=== PATIENT | male | born 1965 | race Caucasian/White ===

== ENCOUNTER → 2019-06-16 | Outpatient (CLI) | payer OTHER ==
[~2019-06-16] MED LIST: METO50TA7
[2019-06-16 08:45] LABS: CREATININE SERUM 1.54 MG/DL (0.60-1.30)
--- NOTE | 2019-06-16 09:23 | Diagnostic Imaging Report ---
Indication: Bilateral kidney stones. Time of exam: 9:13 AM Bilateral renal calcifications are noted consistent with calculi. Multiple small calculi proximal left ureter again noted corresponding with CT and Steinstrasse. Bowel gas pattern is unremarkable. Impression: Bilateral nephrolithiasis and a left ureteral calculi. Dictated by: Dictated on workstation # [id number]
--- NOTE | 2019-06-16 09:24 | Diagnostic Imaging Report ---
PROCEDURE: CT urinary tract, rule out kidney stone. TECHNIQUE: Multiple contiguous axial images were obtained through the abdomen and pelvis without the use of intravenous contrast. Auto Exposure Controls were utilized during the CT exam to meet ALARA standards for radiation dose reduction. INDICATION: Bilateral kidney stones. COMPARISON: No prior studies are available for comparison. FINDINGS: There appears to be some interstitial scarring in the right middle lobe and right lower lobe as well as the left lower lobe. No discrete liver mass is identified. The gallbladder is unremarkable. There is no biliary duct dilatation. The pancreas and spleen are unremarkable. No adrenal mass is detected. There is bilateral nonobstructing renal calculi. Largest renal calculus is located in the lower pole on the right measuring approximately 4 mm. In addition, there are several calculi in the proximal left ureter just beyond the UPJ, largest approximately 5 mm in size. No significant hydronephrosis is seen. The remainder of the left ureter is normal in caliber and unremarkable. No right-sided ureteral calculi are seen. No bladder calculi are detected. Aorta is calcified but nonaneurysmal. Bowel loops are normal in caliber. Appendix is unremarkable. There is no ascites. There is diverticulosis of the descending and sigmoid colon but no evidence of acute diverticulitis. The prostate is unremarkable. IMPRESSION: 1. Bilateral nonobstructing nephrolithiasis. In addition, there are multiple small calculi in the proximal left ureter consistent with steinstrasse, largest 5 mm in size. No significant hydronephrosis is seen. 2. Uncomplicated diverticulosis. Dictated by: Dictated on workstation # [id number]
== END ==
LOC: RAD 08:17
PROVIDERS: ATTEND Urology
DX: N20.2 Calculus of kidney with calculus of ureter (principal); K57.30 Diverticulosis of large intestine without perforation or abscess without bleeding
CPT/HCPCS: 36415; 74018; 74176; 82565; 84520

== ENCOUNTER 2019-07-04 15:35 | Outpatient (CLI) | payer OTHER ==
[~2019-07-04] VITALS: Ht 167.6 cm; Wt 82.9 kg
[~2019-07-04 15:35] MED LIST changes: -ETAN50CA SQ; -ETD300C PO; -GABA-488 PO; -LISI10TA2 PO; -METF-397 PO; -NITR-65 PO; -PRED5TAB PO; -TAMS0.4C98 PO
[2019-07-04] MEDS ORDERED: ETAN50CA SQ (15:47)
[2019-07-04] MEDS ORDERED: GABA-488 PO (15:47)
[2019-07-04] MEDS ORDERED: PRED5TAB PO (15:47)
[2019-07-04] MEDS ORDERED: LISI10TA2 PO (15:47)
[2019-07-04] MEDS ORDERED: ETD300C PO (15:47)
[2019-07-04] MEDS ORDERED: METF-397 PO (15:47)
[2019-07-05] MEDS ORDERED: NITR-65 PO (09:12)
[2019-07-05] MEDS ORDERED: TAMS0.4C98 PO (09:12)
== END 2019-07-04 16:06 | disposition home or self-care (01) ==
LOC: PREOP 15:35
PROVIDERS: ATTEND Urology
DX: Z01.818 Encounter for other preprocedural examination (principal)

== ENCOUNTER → 2019-07-04 | Outpatient (CLI) | payer OTHER ==
[~2019-07-04] MED LIST changes: +ETAN50CA SQ; +ETD300C PO; +GABA-488 PO; +LISI10TA2 PO; +METF-397 PO; +NITR-65 PO; +PRED5TAB PO; +TAMS0.4C98 PO
--- NOTE | 2019-07-04 13:08 | Diagnostic Imaging Report ---
INDICATION: Left ureteral and bilateral renal stones. TIME OF EXAM: 11:28 a.m. Correlation is made with prior study of 06/16/2019. FINDINGS: Calcific densities overlying both renal shadows appear to be stable. There is a calcific density overlying the left L3 transverse process consistent with ureteral calculus. This is similar in position to prior exam. Bowel gas pattern is unremarkable. IMPRESSION: Stable bilateral renal calculi and left ureteral calculus when compared with exam 06/16/2019. Dictated by: Dictated on workstation # [id number]
== END ==
LOC: RAD 11:19
PROVIDERS: ATTEND Urology
DX: N20.2 Calculus of kidney with calculus of ureter (principal)
CPT/HCPCS: 74018

== ENCOUNTER 2019-07-05 05:46 | Day surgery (SDC) | payer OTHER ==
[~2019-07-05] VITALS: Ht 167.6 cm; Wt 82.9 kg
[2019-07-05] VITALS (8 sets, daily range): BP systolic 109–135; BP diastolic 83–98
[~2019-07-05 05:46] MED LIST changes: +ETAN50CA SQ; +ETD300C PO; +GABA-488 PO; +LISI10TA2 PO; +METF-397 PO; +PRED5TAB PO
[2019-07-05] MEDS ORDERED: cefTRIAXone FOR IV USE 1,000 MG in WATER (STERILE) FOR INJECTION 10 ML IV ONE (06:30)
--- NOTE | 2019-07-05 07:17 | Progress Note-Pre Operative ---
Pre-Operative Progress Note H&P Reviewed The H&P was reviewed, patient examined and no changes noted. Date Seen by Provider: Jul 05, 2019 Time Seen by Provider: 07:16 Date H&P Reviewed: Jul 05, 2019 Time H&P Reviewed: 07:16 Pre-Operative Diagnosis: LT PROXIMAL URETERAL AND RT RENAL STONES MAURICE STAPLES MD Jul 05, 2019 07:17
--- NOTE | 2019-07-05 07:21 | Progress Note-Post Operative ---
Post-Operative Progess Note Surgeon (s)/Machine Room Engineer (s) Surgeon MAURICE STAPLES MD Machine Room Engineer: NONE Pre-Operative Diagnosis LT PROXIMAL URETERAL AND RT RENAL STONES Post-Operative Diagnosis SAME Procedure & Operative Findings Date of Procedure 07/05/19 Procedure Performed/Findings LT ESWL Anesthesia Type GENERAL Estimated Blood Loss Estimated blood loss (mL): NONE Specimens/Packing Specimens Removed NONE Packing: NONE MAURICE STAPLES MD Jul 05, 2019 07:21
--- NOTE | 2019-07-05 07:23 | Diagnostic Imaging Report ---
INDICATION: Preop for left ureteral stone removal A supine view of the abdomen shows the bowel gas pattern to be within normal limits. There are bilateral renal calcifications present. There is calcification projected over the left transverse process of L3 consistent with a calculus in the proximal left ureter as was seen on the CT from 06/16/19. There is no bony abnormality. IMPRESSION: There are multiple urinary tract calcifications present. Dictated by: Dictated on workstation # [id number]
--- NOTE | 2019-07-05 07:23 | Discharge Inst-Urology ---
Discharge Inst-Urology Reconcile Patient Problems Problems Reviewed?: Yes Discharge Medications New, Converted, or Re-newed RX: RX on Chart Patient Instructions/Follow Up Plan Please make appointment to been seen in office in on Wednesday 07/11, UZMA prior to it. KUB on way home Post ESWL instructions Increase oral fluids for 48 hours and then as needed. Diet and Activity as tolerated. If questions or concerns contact your physician Or seek help at emergency department. MAURICE STAPLES MD Jul 05, 2019 07:23
[2019-07-05] MEDS ORDERED: MIDAZOLAM 2 MG/2 ML (VERSED) VIAL ONE (07:28)
[2019-07-05] MEDS ORDERED: fentaNYL INJECTION 100 MCG/2 ML AMP ONE (07:28)
[2019-07-05] MEDS ORDERED: LACTATED RINGERS 1,000 ML IV PRN (07:34)
[2019-07-05] MEDS ORDERED: SEVOFLURANE (ULTANE) 15 ML INHAL SOLN ONE (07:55)
[2019-07-05] MEDS ORDERED: proPOfol 200 MG/20 ML (DIPRIVAN) VIAL IV ONE (07:55)
[2019-07-05] MEDS ORDERED: LIDOCAINE PF 2% 5 ML (XYLOCAINE) VIAL ONE (07:55)
[2019-07-05] MEDS ORDERED: FUROSEMIDE 40 MG/4 ML INJ (LASIX) ONE (07:55)
[2019-07-05] MEDS ORDERED: ONDANSETRON 4 MG/2 ML (SDV) Z0FRAN ONE (07:55)
[2019-07-05] MEDS ORDERED: KETOROLAC 30 MG/ML VIAL ONE (07:55)
[2019-07-05] MEDS ORDERED: TAMS0.4C98 PO (09:12)
[2019-07-05] MEDS ORDERED: NITR-65 PO (09:12)
--- NOTE | 2019-07-05 10:50 | OPERATIVE REPORT ---
DATE OF SERVICE: 07/05/2019 PREOPERATIVE DIAGNOSIS: Left proximal ureteral and renal stones. POSTOPERATIVE DIAGNOSIS: Left proximal ureteral and renal stones. OPERATION PERFORMED: Left ESWL. SURGEON: Carlos Staples MD ANESTHESIA: General. COMPLICATIONS: None. DESCRIPTION OF PROCEDURE: Under satisfactory general anesthesia, the patient in supine position on the ESWL table, the left proximal ureteral stone was localized. Shocks were delivered at a kV of 6. A total of 2500 shocks completely fragmented the stone that was hardly visualized. The patient received 40 mg of Lasix and 30 mg of Toradol IV at the end of the procedure. He tolerated the procedure and anesthesia well and was sent to recovery room in stable condition. Job ID: [id number] DocumentID: [id number] Dictated Date: 07/05/2019 08:11:37 Telephone Services Sales Representative Date: 07/05/2019 10:50:18 Dictated By: CARLOS STAPLES MD
--- NOTE | 2019-07-05 12:46 | Diagnostic Imaging Report ---
Examination: Abdomen one view. History: Extracorporeal shockwave lithotripsy. Findings: Comparison: 07/05/2019. The left ureteral stone appears somewhat fragmented compared to prior study. Calcifications projecting over the right kidney appear unchanged. Bowel gas pattern is normal. Impression: 1. Left ureteral stone appears more fragmented than on the prior study, other renal stones are unchanged. Dictated by: Dictated on workstation # [id number]
--- NOTE | 2019-07-05 13:34 | Anesthesia-General Post-Op ---
General Patient Condition Mental Status/LOC: Same as Preop Cardiovascular: Satisfactory Nausea/Vomiting: Absent Respiratory: Satisfactory Pain: Controlled Complications: Absent Post Op Complications Complications None Follow Up Care/Instructions Patient Instructions None needed. Anesthesia/Patient Condition Patient Condition Patient is doing well, no complaints, stable vital signs, no apparent adverse anesthesia problems. No complications reported per nursing. D/C home per [facility] [place] Criteria: Yes SAUL WALLACE CRNA Jul 05, 2019 13:34
== END 2019-07-05 10:00 | disposition home or self-care (01) ==
LOC: SDC 05:46
PROVIDERS: ATTEND Urology
DX: N20.2 Calculus of kidney with calculus of ureter (principal); I10 Essential (primary) hypertension; I25.10 Atherosclerotic heart disease of native coronary artery without angina pectoris; F17.210 Nicotine dependence, cigarettes, uncomplicated; G47.33 Obstructive sleep apnea (adult) (pediatric); M06.9 Rheumatoid arthritis, unspecified; E11.9 Type 2 diabetes mellitus without complications; Z79.84 Long term (current) use of oral hypoglycemic drugs; Z79.51 Long term (current) use of inhaled steroids
CPT/HCPCS: 74018; 82962; 87081

== ENCOUNTER 2019-07-25 09:00 | Outpatient (RCR) | payer OTHER ==
[~2019-07-25 09:00] MED LIST changes: +NITR-65 PO; +TAMS0.4C98 PO
== END 2019-10-06 | disposition home or self-care (01) ==
LOC: LAB 09:00
PROVIDERS: ATTEND Urology
DX: N20.9 Urinary calculus, unspecified (principal)
CPT/HCPCS: 36415; 82140; 82340; 82507; 82570; 83735; 83945; 83986; 84105; 84133; 84300; 84392; 84560; 88300

== ENCOUNTER → 2020-03-23 | Outpatient (CLI) | payer OTHER ==
[~2020-03-23] MED LIST changes: +CATHETER FLUSH 10 ML SYR IV PRN; +HOLD METFORMIN - RECEIVED CONTRAST 20 ML VIAL IV SCH; +IOHEXOL 350 MG/ML 100 ML (OMNIPAQUE 350) VIAL IV ONE; +NS 100 ML (IVPB) BAG IV ONE; -TAMS0.4C98 PO; +TMSL.4C PO
[2020-03-23 08:39] LABS: CREATININE SERUM 1.35 MG/DL (0.60-1.30)
--- NOTE | 2020-03-23 09:45 | Diagnostic Imaging Report ---
PROCEDURE: CT abdomen and pelvis with contrast. TECHNIQUE: Multiple contiguous axial images were obtained through the abdomen and pelvis after administration of intravenous contrast. Auto Exposure Controls were utilized during the CT exam to meet ALARA standards for radiation dose reduction. INDICATION: Abdominal hernia and previous exploratory surgery. Intermittent pain in the area of the hernia. Comparison made with prior examination 06/16/2019. FINDINGS: Heart size is normal. The lung bases are clear. The liver is normal in size and without focal lesions. Gallbladder is unremarkable. There is no biliary ductal dilatation. Spleen is normal. The pancreas and adrenal glands are unremarkable. There are bilateral nonobstructing renal calculi. The aorta is nonaneurysmal. Bowel gas pattern is nonspecific. The appendix is normal. There is no free air. There is no ascites. There are no focal inflammatory changes. There is diverticular disease without evidence of diverticulitis. IMPRESSION: Bilateral nonobstructing renal calculi. Diverticular disease without evidence of diverticulitis. No other acute abnormality in the abdomen or pelvis. Dictated by: Dictated on workstation # [id number]
== END ==
LOC: RAD 07:55
DX: K43.9 Ventral hernia without obstruction or gangrene (principal); K46.9 Unspecified abdominal hernia without obstruction or gangrene; H81.10 Benign paroxysmal vertigo, unspecified ear; I13.0 Hypertensive heart and chronic kidney disease with heart failure and stage 1 through stage 4 chronic kidney disease, or unspecified chronic kidney disease; I25.10 Atherosclerotic heart disease of native coronary artery without angina pectoris; N18.3 Chronic kidney disease, stage 3 (moderate); E11.40 Type 2 diabetes mellitus with diabetic neuropathy, unspecified; K76.0 Fatty (change of) liver, not elsewhere classified; G47.33 Obstructive sleep apnea (adult) (pediatric); M06.9 Rheumatoid arthritis, unspecified; F17.210 Nicotine dependence, cigarettes, uncomplicated; E78.2 Mixed hyperlipidemia; R19.02 Left upper quadrant abdominal swelling, mass and lump; N20.0 Calculus of kidney; K57.90 Diverticulosis of intestine, part unspecified, without perforation or abscess without bleeding; Z98.890 Other specified postprocedural states
CPT/HCPCS: 36415; 74177; 82565; 84520

== ENCOUNTER → 2021-03-08 | Outpatient (CLI) | payer OTHER ==
[~2021-03-08] MED LIST changes: -CATHETER FLUSH 10 ML SYR IV PRN; -HOLD METFORMIN - RECEIVED CONTRAST 20 ML VIAL IV SCH; -IOHEXOL 350 MG/ML 100 ML (OMNIPAQUE 350) VIAL IV ONE; -LISI10TA2 PO; +LISI10TA25 PO; -NS 100 ML (IVPB) BAG IV ONE
--- NOTE | 2021-03-08 14:23 | Diagnostic Imaging Report ---
INDICATION: Dysphagia. Study was performed in conjunction with speech pathology. Video fluoroscopy was performed during swallowing of barium multiple consistencies. Total of 1 minute and 21 seconds of fluoroscopic time was utilized. Patient ingested thin liquid as well as applesauce, banana, ground meat as well as cracker consistency. Patient was also given a barium tablet. No laryngeal penetration or aspiration was observed. There is no epiglottic tilt and laryngeal elevation. There is some mild vallecular residue with the pureed consistency. Swallowing did improve during chin tuck maneuver. The barium tablet did pass without difficulty. IMPRESSION: Essentially unremarkable modified barium swallow without evidence of penetration or aspiration. There was mild vallecular residue noted which did not improve with chin tuck. Dictated by: Dictated on workstation # [id number]
== END ==
LOC: RAD 11:00
PROVIDERS: ATTEND Nurse Practitioner
DX: R13.10 Dysphagia, unspecified (principal); I25.10 Atherosclerotic heart disease of native coronary artery without angina pectoris; I10 Essential (primary) hypertension; E78.2 Mixed hyperlipidemia; E11.9 Type 2 diabetes mellitus without complications; M06.9 Rheumatoid arthritis, unspecified; F17.210 Nicotine dependence, cigarettes, uncomplicated; E11.42 Type 2 diabetes mellitus with diabetic polyneuropathy; N18.30 Chronic kidney disease, stage 3 unspecified; E11.22 Type 2 diabetes mellitus with diabetic chronic kidney disease; H81.10 Benign paroxysmal vertigo, unspecified ear
CPT/HCPCS: 74230

== ENCOUNTER → 2021-06-14 | Outpatient (CLI) | payer OTHER ==
--- NOTE | 2021-06-14 16:50 | Diagnostic Imaging Report ---
EXAMINATION: CT abd/pelvis wo(kidney stone). TECHNIQUE: Unenhanced CT imaging of the abdomen and pelvis was performed. 2-D reformats are created and submitted for interpretation. Automatic exposure controls were utilized to optimize patient dose. All CT scans use one or more of the following dose optimizing techniques: automated exposure control, MA and/or KvP adjustment based on patient size and exam type or iterative reconstruction. INDICATION: Right flank pain. COMPARISON: CT abdomen and pelvis of 03/23/2020. FINDINGS: Evaluation of the abdominal viscera is mildly limited without contrast. Lower chest: Partially imaged paraesophageal mass posterior to the left atrium. There are multiple mildly enlarged paraesophageal and juxtaphrenic lymph nodes. Largest is 1.3 x 1.4 cm. Peritoneum: No free intraperitoneal air or fluid. Liver and biliary system: Unenhanced liver is normal. Gallbladder is contracted without radiopaque gallstones. No biliary duct dilatation. Spleen and Pancreas: Spleen is normal. Unenhanced pancreas is grossly normal. Adrenals: Normal. tract: Numerous bilateral nonobstructing renal stones range in size from 2-4 mm. No hydronephrosis. No solid renal mass. GI tract: Stomach is partially filled with fluid but there is no wall thickening. No bowel obstruction. Normal appendix. No pericolonic inflammatory change. Vasculature and Lymph nodes: Normal caliber abdominal aorta. Enlarged upper abdominal lymph nodes are detailed above in the chest section. Musculoskeletal: No concerning osseous lesion. IMPRESSION: 1. Incompletely imaged paraesophageal soft tissue mass located posterior to the right atrium must be considered malignant until proven otherwise. CT chest abdomen and pelvis with IV contrast is recommended for further workup/staging. 2. Additionally, there are multiple enlarged paraesophageal and upper abdominal lymph nodes that are suspicious for regional metastases. 3. Bilateral nonobstructing renal stones. Dictated by: Dictated on workstation # [id number]
== END ==
LOC: RAD 16:15
PROVIDERS: ATTEND Urology
DX: N20.0 Calculus of kidney (principal); R59.0 Localized enlarged lymph nodes
CPT/HCPCS: 74176

== ENCOUNTER → 2021-06-26 | Outpatient (CLI) | payer OTHER ==
--- NOTE | 2021-06-26 17:07 | Diagnostic Imaging Report ---
EXAMINATION: CT chest without contrast. TECHNIQUE: Multiple contiguous axial images were obtained through the chest without the use of intravenous contrast. All CT scans use one or more of the following dose optimizing techniques: automated exposure control, MA and/or KvP adjustment based on patient size and exam type or iterative reconstruction. HISTORY: Lymphadenopathy. COMPARISON: None available. FINDINGS: Thyroid: The thyroid is normal. Mediastinum: Heart size is normal without significant pericardial effusion. Calcifications of the aorta and coronary vessels. Thoracic aorta is normal in caliber. There are numerous enlarged mediastinal and perihilar lymph nodes. A agricultural sales representative node measures 3.0 x 3.7 cm in the right pretracheal space. An additional subcarinal node measures 3.6 x 5.4 cm. Lungs and airways: Scattered emphysematous and fibrotic changes of the lungs without focal consolidation, pleural effusion, or pneumothorax. There are a few scattered groundglass opacities. There are a few more focal nodules measuring up to 0.4 cm in the right lung apex (series 3 image 20). The airways are normal. Upper abdomen: There are a few enlarged grover hepatis and retroperitoneal lymph nodes present. There are multiple bilateral renal calculi. Hydronephrosis. Musculoskeletal: Degenerative changes of the spine without suspicious osseous lesion or compression fracture. IMPRESSION: 1. Suspicious enlarged mediastinal, perihilar, and upper abdominal lymphadenopathy. Findings are concerning for josee metastasis or lymphoma. Recommend correlation with any prior history of cancer or lymphoma. 2. Scattered emphysematous or fibrotic changes of the lungs. 3. Mild groundglass attenuation seen throughout the lungs which could be secondary to background lung disease or superimposed atypical infection. 4. Pulmonary nodules measuring up to 0.4 cm. Consider follow-up CT of the chest in 6-12 months. Dictated by: Dictated on workstation # [id number]
== END ==
LOC: RAD 16:45
PROVIDERS: ATTEND Urology
DX: R91.8 Other nonspecific abnormal finding of lung field (principal); R59.0 Localized enlarged lymph nodes
CPT/HCPCS: 71250

== ENCOUNTER → 2021-07-09 | Outpatient (CLI) | payer OTHER ==
--- NOTE | 2021-07-09 13:39 | Diagnostic Imaging Report ---
INDICATION: Abnormal recent CT scans demonstrating lymphadenopathy. TECHNIQUE: Serum blood glucose level at the time of injection is 99 mg/dL. Patient was administered 14.3 mCi F-18 FDG intravenously in the left antecubital location and PET imaging was performed from the top of the skull to mid thighs. Noncontrast CT was also performed for attenuation correction and anatomic correlation. COMPARISON: No prior PET/CT studies are available for comparison. Comparison is made with prior CT abdomen and pelvis study from 06/14/[address] chest from 06/26/2021. FINDINGS: There is symmetric activity throughout the brain. The soft tissues of the neck are unremarkable apart from a left supraclavicular hypermetabolic josee mass with an SUV max of approximately 8. There is significant hypermetabolic lymphadenopathy throughout the mediastinum in the paratracheal and prevascular space as well as the AP window and subcarinal location. SUV max in the right paratracheal josee mass is 15.7. There is also bilateral hilar hypermetabolic lymphadenopathy. No pulmonary parenchymal hypermetabolism is seen. There are also hypermetabolic lymph nodes adjacent to the distal esophagus near the GE junction. Imaging through the abdomen does show hypermetabolic lymph node in the hepatogastric ligaments with an SUV max of 8. There are hypermetabolic central retroperitoneal and portacaval lymph nodes. No definite hypermetabolic iliac chain or inguinal lymphadenopathy is seen. There is physiologic activity throughout the GI and tracts of the abdomen and pelvis. IMPRESSION: Hypermetabolic lymphadenopathy in supraclavicular as well as mediastinal and hilar regions. There is hypermetabolic lymphadenopathy in the upper abdomen in the central retroperitoneum, gastrohepatic ligament, and portacaval nodes. Features are suggestive of lymphoma. Dictated by: Dictated on workstation # [id number]
== END ==
LOC: RAD 10:30
PROVIDERS: ATTEND Internal Medicine Hematology & Oncology
DX: R59.0 Localized enlarged lymph nodes (principal)

== ENCOUNTER 2021-09-02 12:58 | Emergency (ER) | payer OTHER ==
[~2021-09-02] VITALS: Ht 165.1 cm; Wt 70.3 kg
--- OUTSIDE RECORDS SUMMARY | 2021-09-02 13:06 | XMS REPORT | Clinical Summary ---
Author Author [facility] Organization [facility] Address Unknown Phone Unavailable Care Team Providers Care Instruction Librarian Name Role Phone PCP Unavailable Allergies Not on File Medications Not on file Active Problems Not on file Social History Date Tobacco Use Types Packs/Day Years Used Never Assessed Sex Assigned at Date Recorded Not on file Last Filed Vital Signs Not on file Plan of Treatment Not on file Results Not on filefrom Last 3 Months
[2021-09-02 13:30] VITALS: BP 126/92
[2021-09-02] MEDS ORDERED: fentaNYL INJ 100 MCG/2 ML AMP IVP ONE (13:45)
[2021-09-02] MEDS ORDERED: KETOROLAC 30 MG/ML VIAL IVP ONE (13:45)
[2021-09-02] MEDS ORDERED: LACTATED RINGERS 1,000 ML IV SCH (13:45)
--- NOTE | 2021-09-02 13:45 | ED Back Pain ---
General Chief Complaint: Back Problems Stated Complaint: BACK PAIN Nursing Triage Note: PT AMB TO [facility] 6 WITH COMPLAINT OF RIGHT BACK PAIN THAT STARTED YESTERDAY. STATES HAS HX OF KIDNEY STONES AND THIS KIND OF FEELS LIKE ONE. ALSO STATES HE HAS ENLARGED LYMPHNODES THROUGHOUT AND BIOPSY SCHEDULED ON THURSDAY. Source of Information: Patient Exam Limitations: No Limitations History of Present Illness Date Seen by Provider: Sep 02, 2021 Time Seen by Provider: 13:43 Initial Comments To ER with right flank pain that began yesterday evening no preceding trauma no fever no chills no loss of bowel or bladder control no loss of sensation of genitals no fever. He does have recently diagnosed enlarged lymph nodes diffusely and is scheduled for a biopsy on Thursday for a presumptive diagnosis of lymphoma. He is not currently undergoing any treatment. He is on Enbrel for a history of rheumatoid arthritis. Location: Lumbar Spine Timing/Duration: 24 Hours Severity: Moderate Pain/Injury Location: Back Radiation: Other (Pain does not radiate) Method of Injury: Unknown Associated Symptoms: No fever, No numbness in legs/feet, No tingling in legs/feet, No sensory/motor loss; lower back pain Allergies and Home Medications Allergies Coded Allergies: No Known Drug Allergies (Verified Allergy, Unknown, 05/15/09) Patient Home Medication List Home Medication List Reviewed: Yes Etanercept (Enbrel) 50 Mg/1 Ml Cartridge, 50 MG SQ WEEK, (Reported) Entered as Reported by: ANCA HAWKINS on 07/04/191546 Etodolac (Etodolac) 300 Mg Capsule, 300 MG PO PRN, (Reported) Entered as Reported by: ANCA HAWKINS on 07/04/19 154 Gabapentin (Gabapentin) 300 Mg Capsule, 300 MG PO HS, (Reported) Entered as Reported by: ANCA HAWKINS on 07/04/19 154 Hydrocodone/Acetaminophen (Hydrocodone-Acetamin 5-325 mg) 1 Each Tablet, 1 TAB PO Q4H PRN for PAIN-MODERATE (5-7) Prescribed by: AARON CASTELLON on 09/02/21 1439 Lisinopril (Lisinopril) 10 Mg Tablet, 5 MG PO DAILY, (Reported) Entered as Reported by: ANCA HAWKINS on 07/04/19 154 Metformin HCl (Metformin HCl) 500 Mg Tablet, 500 MG PO BID, (Reported) Entered as Reported by: ANCA HAWKINS on 07/04/191546 Nitrofurantoin Monohyd/M-Cryst (Macrobid 100 mg Capsule) 100 Mg Capsule, 1 TAB PO BID Prescribed by: ANDREW BRANTLEY on 07/05/19911 Prednisone (Prednisone) 5 Mg Tablet, 7.5 MG PO DAILY, (Reported) Entered as Reported by: ANCA HAWKINS on 07/04/191546 Tamsulosin HCl (Flomax) 0.4 Mg Cap, 0.4 MG PO DAILY Prescribed by: ANDREW BRANTLEY on 07/05/19911 Review of Systems Constitutional: see HPI EENTM: see HPI Respiratory: no symptoms reported Cardiovascular: no symptoms reported Genitourinary: no symptoms reported Musculoskeletal: see HPI, back pain Skin: no symptoms reported Psychiatric/Neurological: No Symptoms Reported Past Vjgxhtm-Chgcov-Meslnf Hx Patient Social History Tobacco Use?: No Use of E-Cig and/or Vaping dev: No Substance use?: No Alcohol Use?: No Pt feels they are or have been: No Immunizations Up To Date PED Vaccines UTD: No First/Initial COVID19 Vaccinat: APRIL 2021 Second COVID19 Vaccination Demetrio: MAY 2021 COVID19 Vaccine Terrestrial Ecologist: DEENA Seasonal Allergies Seasonal Allergies: No Past Medical History Surgeries: Yes (EXPLOR.LAP,T&A, SHOULDER X2, CTR) Respiratory: Yes Sleep Apnea Currently Using CPAP: Yes (MACHINE IS BROKE) Cardiac: Yes Heart Attack, Hypertension Neurological: No Reproductive Disorders: Yes (LOW SPERM COUNT) Sexually Transmitted Disease: No HIV/AIDS: No Genitourinary: Yes Kidney Stones Gastrointestinal: Yes Chronic Diarrhea Musculoskeletal: Yes Rheumatoid Arthritis Endocrine: Yes Diabetes, Non-Insulin dep HEENT: Yes (GLASSES) Loss of Vision: Denies Hearing Impairment: Denies Cancer: No Psychosocial: No Integumentary: No Blood Disorders: No Adverse Reaction/Blood Tranf: Yes (N/A) Physical Exam Vital Signs Vital Signs - First Documented 09/02/21 13:30 Pulse 102 Resp 17 B/P (MAP) 126/92 (103) Pulse Ox 97 O2 Delivery Room Air Capillary Refill : Less Than 3 Seconds Height, Weight, BMI Height: 5'6.00" Weight: 182lbs. 12.8oz. 82.142063hg; 25.00 BMI Method: General Appearance: No Apparent Distress, WD/WN HEENT: PERRL/EOMI, TMs Normal Neck: Full Range of Motion, Normal Inspection Respiratory: No Accessory Muscle Use, No Respiratory Distress Gastrointestinal: Normal Bowel Sounds, Non Tender, Soft Back: Other (The right low back over the flank is tender to palpation over approximately the L1-L3 transverse process on the right side. This overlying skin has a normal appearance without erythema rash or vesicles.) Extremity: Normal Capillary Refill, Normal Inspection Neurologic/Psychiatric: Alert, Oriented x3 Skin: Normal Color, Warm/Dry Progress/Results/Core Measures Results/Orders Lab Results Laboratory Tests Test 09/02/21 13:40 Range/Units White Blood Count 6.3 4.3-11.0 10^3/uL Red Blood Count 4.84 4.30-5.52 10^6/uL Hemoglobin 14.3 13.3-17.7 g/dL Hematocrit 41 40-54 % Mean Corpuscular Volume 84 80-99 fL Mean Corpuscular Hemoglobin 30 25-34 pg Mean Corpuscular Hemoglobin Concent 35 32-36 g/dL Red Cell Distribution Width 13.1 10.0-14.5 % Platelet Count 176 130-400 10^3/uL Mean Platelet Volume 9.9 9.0-12.2 fL Immature Granulocyte % (Auto) 0 % Neutrophils (%) (Auto) 61 42-75 % Lymphocytes (%) (Auto) 20 12-44 % Monocytes (%) (Auto) 15 H 0-12 % Eosinophils (%) (Auto) 3 0-10 % Basophils (%) (Auto) 1 0-10 % Neutrophils # (Auto) 3.8 1.8-7.8 10^3/uL Lymphocytes # (Auto) 1.2 1.0-4.0 10^3/uL Monocytes # (Auto) 1.0 0.0-1.0 10^3/uL Eosinophils # (Auto) 0.2 0.0-0.3 10^3/uL Basophils # (Auto) 0.1 0.0-0.1 10^3/uL Immature Granulocyte # (Auto) 0.0 0.0-0.1 10^3/uL Urine Color YELLOW Urine Clarity CLEAR Urine pH 6.0 5-9 Urine Specific [place] 1.025 H 1.016-1.022 Urine Protein NEGATIVE NEGATIVE Urine Glucose (UA) TRACE H NEGATIVE Urine Ketones NEGATIVE NEGATIVE Urine Nitrite NEGATIVE NEGATIVE Urine Bilirubin 2+ H NEGATIVE Urine Urobilinogen 0.2 < = 1.0 MG/DL Urine Leukocyte Esterase NEGATIVE NEGATIVE Urine RBC (Auto) NEGATIVE NEGATIVE Urine RBC NONE /HPF Urine WBC NONE /HPF Urine Crystals PRESENT H /LPF Urine Calcium Oxalate Crystals FEW H /LPF Urine Bacteria NEGATIVE /HPF Urine Casts NONE /LPF Urine Mucus NEGATIVE /LPF Urine Culture Indicated NO Sodium Level 135 135-145 MMOL/L Potassium Level 3.8 3.6-5.0 MMOL/L Chloride Level 105 98-107 MMOL/L Carbon Dioxide Level 19 L 21-32 MMOL/L Anion Gap 11 5-14 MMOL/L Blood Urea Nitrogen 22 H 7-18 MG/DL Creatinine 1.82 H 0.60-1.30 MG/DL Estimat Glomerular Filtration Rate 39 BUN/Creatinine Ratio 12 Glucose Level 138 H 70-105 MG/DL Calcium Level 9.4 8.5-10.1 MG/DL My Orders Orders - AARON CASTELLON APRN Cbc With Automated Diff (09/02/21 13:42) Basic Metabolic Panel (09/02/21 13:42) Ua Culture If Indicated (09/02/21 13:42) Ed Iv/Invasive Line Start (09/02/21 13:42) Ct Abd/Pelvis Wo(Kidney Stone) (09/02/21 13:42) Lactated Ringers (Lr 1000 Ml Iv Solution (09/02/21 13:45) Ketorolac Injection (Toradol Injection) (09/02/21 13:45) Fentanyl Inj (Sublimaze Injection) (09/02/21 13:45) Medications Given in ED Current Medications Medications Dose Ordered Sig/Carlos Route Start Time Stop Time Status Last Admin Dose Admin Fentanyl Citrate 50 mcg ONCE ONCE IVP 09/02/21 13:45 09/02/21 13:46 DC 09/02/21 13:54 50 MCG Ketorolac Tromethamine 15 mg ONCE ONCE IVP 09/02/21 13:45 09/02/21 13:46 DC 09/02/21 13:53 15 MG Vital Signs/I&O 09/02/21 13:30 Pulse 102 Resp 17 B/P (MAP) 126/92 (103) Pulse Ox 97 O2 Delivery Room Air Blood Pressure Mean: 103 Departure Communication (Admissions) Family Conversation 1449-his pain is improved when he lays flat worsens when he stands up. This kidney stone on the right is still in the renal pelvis but theoretically could be causing a ball-valve effect contributing to his pain. I will have him follow-up with Dr. Staples. Because of kidney function I will use any NSAIDs. NAME: JASON ZUNIGA [facility] REC#: [id number] PT STATUS: REG ER : 1965 PHYSICIAN: AARON CASTELLON APRN ADMIT DATE: 09/02/21/ER Draft Date of Exam:09/02/21 CT ABD/PELVIS WO(KIDNEY STONE) PROCEDURE: CT urinary tract, rule out kidney stone. TECHNIQUE: Multiple contiguous axial images were obtained through the abdomen and pelvis without the use of intravenous contrast. Auto Exposure Controls were utilized during the CT exam to meet ALARA standards for radiation dose reduction. INDICATION: Right flank pain. COMPARISON: 06/14/2021. FINDINGS: There is chronic interstitial fibrotic change at the lung bases. Mediastinal lymphadenopathy is partially seen at the inferior mediastinum, appears stable since 06/14/2021. The liver demonstrates no focal lesions. The spleen appears normal. The pancreas is normal. The adrenal glands appear normal. There are multiple calculi in the kidneys bilaterally. The largest on the right measures up to 7 mm in diameter and is located in the renal collecting system. The largest on the left is seen at the superior pole, measuring up to 5 mm in diameter. No significant hydronephrosis is seen. The bowel loops are nondistended without obstruction. No free fluid or free air is seen. The appendix appears normal. There is moderate stool in the colon. There is diverticulosis of the descending and sigmoid colon without diverticulitis seen. No acute osseous abnormality is seen. There are multiple mildly prominent lymph nodes in the upper abdomen. IMPRESSION: 1. Multiple nonobstructing calculi in the kidneys bilaterally. The largest is in the right renal collecting system near the ureter, but there is no obstruction or hydronephrosis seen. 2. Enlarged lymph nodes in the upper abdomen and in the lower mediastinum, appear similar to the prior exam, and suggestive of lymphoma. Dictated on workstation # [id number] Dict: 09/02/21 1424 Trans: 09/02/21 1432 [id number] Interpreted by: TOD WEAVER MD Electronically signed by: Impression Primary Impression: Right kidney stone Additional Impression: Acute right flank pain Disposition: 01 HOME, SELF-CARE Condition: Stable Departure-Patient Inst. Decision time for Depature: 14:36 Referrals: NO,LOCAL PHYSICIAN (PCP) Primary Care Physician MAURICE STAPLES MD Patient Instructions: Kidney Stone, Adult ED, Flank Pain ED Add. Discharge Instructions: 1. Call Dr. Staples to make an appointment to be seen for follow-up as the pain that you are having may be related to a kidney stone that we can see in the right renal pelvis. Take the pain medication as directed. Keep your appointment for biopsy of the lymph nodes on Thursday as directed. Return to ER for any worsening such as vomiting fevers or intolerable pain. All discharge instructions reviewed with patient and/or family. Voiced understanding. Scripts Hydrocodone/Acetaminophen (Hydrocodone-Acetamin 5-325 mg) 1 Each Tablet 1 TAB PO Q4H PRN for PAIN-MODERATE (5-7), #14 TAB Prov: AARON CASTELLON APRN 09/02/21 Copy Copies To 1: MAURICE STAPLES MD, PETER J APRN Sep 02, 2021 13:45
[2021-09-02 13:48] LABS: BILIRUBIN,URINE 2+ (NEGATIVE); CLARITY,URINE CLEAR; COLOR,URINE YELLOW; GLUCOSE, URINE (UA) TRACE (NEGATIVE); KETONES,URINE NEGATIVE (NEGATIVE); LEUKOCYTE ESTERASE ,URINE NEGATIVE (NEGATIVE); NITRITE,URINE NEGATIVE (NEGATIVE); PROTEIN,URINE NEGATIVE (NEGATIVE)
[2021-09-02 13:51] LABS: BASOPHILS # (AUTO) 0.1 10^3/uL (0.0-0.1); BASOPHILS % (AUTO) 1 % (0-10); EOSINOPHILS # (AUTO) 0.2 10^3/uL (0.0-0.3); EOSINOPHILS % (AUTO) 3 % (0-10); HEMATOCRIT 41 % (40-54); HEMOGLOBIN 14.3 g/dL (13.3-17.7); LYMPHOCYTES # (AUTO) 1.2 10^3/uL (1.0-4.0); LYMPHOCYTES % (AUTO) 20 % (12-44); MEAN CORPUSCULAR HEMOGLOBIN 30 pg (25-34); MEAN CORPUSCULAR HGB CONC 35 g/dL (32-36); MEAN CORPUSCULAR VOLUME 84 fL (80-99); MEAN PLATELET VOLUME 9.9 fL (9.0-12.2); MONOCYTES % (AUTO) 15 % (0-12); NEUTROPHILS # (AUTO) 3.8 10^3/uL (1.8-7.8); NEUTROPHILS % (AUTO) 61 % (42-75); PLATELET COUNT 176 10^3/uL (130-400); WHITE BLOOD COUNT 6.3 10^3/uL (4.3-11.0)
[2021-09-02 13:59] LABS: BACTERIA,URINE NEGATIVE /HPF; CALCIUM OXALATE CRYSTALS,UR FEW /LPF
[2021-09-02 14:05] LABS: POTASSIUM 3.8 MMOL/L (3.6-5.0)
[2021-09-02 14:06] LABS: CALCIUM 9.4 MG/DL (8.5-10.1)
[2021-09-02 14:10] LABS: CREATININE SERUM 1.82 MG/DL (0.60-1.30)
--- NOTE | 2021-09-02 14:33 | Diagnostic Imaging Report ---
PROCEDURE: CT urinary tract, rule out kidney stone. TECHNIQUE: Multiple contiguous axial images were obtained through the abdomen and pelvis without the use of intravenous contrast. Auto Exposure Controls were utilized during the CT exam to meet ALARA standards for radiation dose reduction. INDICATION: Right flank pain. COMPARISON: 06/14/2021. FINDINGS: There is chronic interstitial fibrotic change at the lung bases. Mediastinal lymphadenopathy is partially seen at the inferior mediastinum, appears stable since 06/14/2021. The liver demonstrates no focal lesions. The spleen appears normal. The pancreas is normal. The adrenal glands appear normal. There are multiple calculi in the kidneys bilaterally. The largest on the right measures up to 7 mm in diameter and is located in the renal collecting system. The largest on the left is seen at the superior pole, measuring up to 5 mm in diameter. No significant hydronephrosis is seen. The bowel loops are nondistended without obstruction. No free fluid or free air is seen. The appendix appears normal. There is moderate stool in the colon. There is diverticulosis of the descending and sigmoid colon without diverticulitis seen. No acute osseous abnormality is seen. There are multiple mildly prominent lymph nodes in the upper abdomen. IMPRESSION: 1. Multiple nonobstructing calculi in the kidneys bilaterally. The largest is in the right renal collecting system near the ureter, but there is no obstruction or hydronephrosis seen. 2. Enlarged lymph nodes in the upper abdomen and in the lower mediastinum, appear similar to the prior exam, and suggestive of lymphoma. Dictated by: Dictated on workstation # [id number]
[2021-09-02] MEDS ORDERED: ACHD5005 PO (14:37)
[2021-09-02] MEDS ORDERED: HYDROcodone/APAP 5 MG/325 MG (LORTAB) TAB PO ONE (15:00)
== END 2021-09-02 15:03 | disposition home or self-care (01) ==
LOC: EDUNIT# 12:58 → ER 12:59
DX: N20.0 Calculus of kidney (principal); G47.30 Sleep apnea, unspecified; I25.2 Old myocardial infarction; I10 Essential (primary) hypertension; E11.9 Type 2 diabetes mellitus without complications; Z79.84 Long term (current) use of oral hypoglycemic drugs; Z79.52 Long term (current) use of systemic steroids; Z79.899 Other long term (current) drug therapy
CPT/HCPCS: 36415; 74176; 80048; 81000; 85025

== ENCOUNTER 2021-09-16 14:21 | Outpatient (RCR) | payer OTHER ==
[2021-07-16 08:52] LABS: BASOPHILS # (AUTO) 0.1 10^3/uL (0.0-0.1); BASOPHILS % (AUTO) 1 % (0-10); EOSINOPHILS # (AUTO) 0.1 10^3/uL (0.0-0.3); EOSINOPHILS % (AUTO) 2 % (0-10); HEMATOCRIT 42 % (40-54); HEMOGLOBIN 14.6 g/dL (13.3-17.7); LYMPHOCYTES # (AUTO) 1.2 10^3/uL (1.0-4.0); LYMPHOCYTES % (AUTO) 17 % (12-44); MEAN CORPUSCULAR HEMOGLOBIN 30 pg (25-34); MEAN CORPUSCULAR HGB CONC 35 g/dL (32-36); MEAN CORPUSCULAR VOLUME 85 fL (80-99); MEAN PLATELET VOLUME 9.8 fL (9.0-12.2); MONOCYTES # (AUTO) 0.8 10^3/uL (0.0-1.0); MONOCYTES % (AUTO) 12 % (0-12); NEUTROPHILS # (AUTO) 4.7 10^3/uL (1.8-7.8); NEUTROPHILS % (AUTO) 68 % (42-75); PLATELET COUNT 161 10^3/uL (130-400); WHITE BLOOD COUNT 6.9 10^3/uL (4.3-11.0)
[2021-07-16 09:11] LABS: ALBUMIN 3.9 GM/DL (3.2-4.5); BILIRUBIN,TOTAL 0.5 MG/DL (0.1-1.0); CALCIUM 10.4 MG/DL (8.5-10.1); CREATININE SERUM 1.61 MG/DL (0.60-1.30); TOTAL PROTEIN 8.3 GM/DL (6.4-8.2)
[~2021-09-16 14:21] MED LIST changes: +ACHD5005 PO
[2021-10-01] MEDS ORDERED: ETD300C PO (07:40)
[2021-10-01] MEDS ORDERED: ATOR20TA66 PO (07:40)
[2021-10-01] MEDS ORDERED: KETO10TA PO (11:14)
[2021-10-01] MEDS ORDERED: NITR-65 PO (11:14)
== END 2021-10-14 | disposition home or self-care (01) ==
LOC: ONC 14:21
PROVIDERS: ATTEND Internal Medicine Hematology & Oncology
DX: I89.0 Lymphedema, not elsewhere classified (principal); E83.52 Hypercalcemia; I25.10 Atherosclerotic heart disease of native coronary artery without angina pectoris; E11.22 Type 2 diabetes mellitus with diabetic chronic kidney disease; I12.9 Hypertensive chronic kidney disease with stage 1 through stage 4 chronic kidney disease, or unspecified chronic kidney disease; N18.9 Chronic kidney disease, unspecified; E78.2 Mixed hyperlipidemia
CPT/HCPCS: 80053; 83615; 85025; 99213; 99214

== ENCOUNTER → 2021-09-26 | Outpatient (CLI) | payer OTHER ==
[~2021-09-26] MED LIST changes: +ATOR20TA66 PO; +KETO10TA PO
--- NOTE | 2021-09-26 15:20 | Diagnostic Imaging Report ---
EXAMINATION: Abdomen 1 view HISTORY: HISTORY OF STONES COMPARISON: 08/05/2019, CT 09/02/2021 FINDINGS: There is a moderate amount of gas and stool throughout the colon. Nonobstructive bowel gas pattern. There are multiple bilateral opacities overlying the kidneys measuring up to 0.7 cm. The osseous structures are intact. IMPRESSION: Bilateral renal calculi measuring up to 0.7 cm. Dictated by: Dictated on workstation # [id number]
== END ==
LOC: RAD 14:00
PROVIDERS: ATTEND Urology
DX: N20.0 Calculus of kidney (principal)
CPT/HCPCS: 74018

== ENCOUNTER → 2021-09-27 | Outpatient (CLI) | payer OTHER ==
--- NOTE | 2021-09-27 16:33 | Diagnostic Imaging Report ---
INDICATION: Kidney stones with right flank pain. COMPARISON: CT scan from 09/27/2021. FINDINGS: There are bilateral renal calculi as noted on CT scan. There is a stone in the proximal right ureter at the UPJ measuring approximately 6 mm. The bladder is not distended. IMPRESSION: Bilateral renal calculi with proximal right ureteral calculus. Dictated by: Dictated on workstation # [id number]
--- NOTE | 2021-09-27 16:42 | Diagnostic Imaging Report ---
EXAMINATION: CT abdomen and pelvis without contrast. TECHNIQUE: Multiple contiguous axial images were obtained through the abdomen and pelvis without the use of intravenous contrast. All CT scans use one or more of the following dose optimizing techniques: automated exposure control, MA and/or KvP adjustment based on patient size and exam type or iterative reconstruction. HISTORY: Right flank pain. COMPARISON: 09/02/2021. FINDINGS: Limited views of the lower thorax show interstitial fibrosis. The liver is normal without focal lesion. There is no biliary ductal dilation. Gallbladder is normal. Pancreas is normal. Spleen is normal. Adrenal glands are normal. There is a 5 mm stone in the proximal right ureter with mild right-sided hydronephrosis. There are additional nonobstructing stones in both kidneys. There are approximately five stones in each kidney. There is no hydronephrosis. Urinary bladder is normal. Visualized bowel is normal in caliber without obstruction or inflammation. The appendix is normal. No free fluid or air. There is stable mildly enlarged retroperitoneal lymph nodes measuring up to 10 mm in short axis. Aorta is normal in caliber without aneurysm. There are no suspicious osseus lesions. IMPRESSION: Obstructing 5 mm stone in the proximal right ureter with mild right-sided hydronephrosis. Dictated by: Dictated on workstation # [id number]
== END ==
LOC: RAD 15:49
PROVIDERS: ATTEND Urology
DX: N13.2 Hydronephrosis with renal and ureteral calculous obstruction (principal)
CPT/HCPCS: 74018; 74176

== ENCOUNTER → 2021-09-30 | Outpatient (CLI) | payer OTHER ==
--- NOTE | 2021-09-30 14:02 | Diagnostic Imaging Report ---
INDICATION: Followup right ureteral calculus. COMPARISON: 09/27/2021. FINDINGS: A single supine radiographic view of the abdomen was obtained. A 5 to 6 mm calculus is again identified projecting over the superior right psoas muscle. This may be slightly migrated distally as it now resides inferior to the right L2 transverse process. Multiple additional bilateral renal calculi are also again identified. No unexpected radiopaque foreign bodies are seen. The small bowel loops are nondistended. There is no large collection of free intraperitoneal air. The osseous structures show no acute abnormalities. IMPRESSION: 1. Redemonstration of a right ureteral calculus as described above. 2. Multiple additional bilateral renal calculi. Dictated by: Dictated on workstation # [id number]
== END ==
LOC: RAD 13:07
PROVIDERS: ATTEND Urology
DX: N20.2 Calculus of kidney with calculus of ureter (principal)
CPT/HCPCS: 74018

== ENCOUNTER 2021-10-01 06:45 | Day surgery (SDC) | payer OTHER ==
[~2021-10-01] VITALS: Ht 165.1 cm; Wt 71.1 kg
[2021-10-01] VITALS (9 sets, daily range): BP systolic 88–132; BP diastolic 63–88
[~2021-10-01 06:45] MED LIST changes: -ATOR20TA66 PO; -KETO10TA PO
[2021-10-01] MEDS ORDERED: cefTRIAXone 1 GM IV (PRE-MIX) 50 ML IV ONE (07:00)
[2021-10-01] MEDS ORDERED: CEFTRIAXONE IV ONE (07:00)
--- NOTE | 2021-10-01 07:00 | Progress Note-Pre Operative ---
Pre-Operative Progress Note H&P Reviewed The H&P was reviewed, patient examined and no changes noted. Date Seen by Provider: Oct 01, 2021 Time Seen by Provider: 07:00 Date H&P Reviewed: Oct 01, 2021 Time H&P Reviewed: 07:00 Pre-Operative Diagnosis: RT PROXIMAL URETERAL STONE MAURICE STAPLES MD Oct 01, 2021 07:00
--- NOTE | 2021-10-01 07:24 | Diagnostic Imaging Report ---
INDICATION: Nephrolithiasis. Pre-extracorporeal shock wave lithotripsy assessment. TECHNIQUE: Single supine view of the abdomen 7:06 AM CORRELATION STUDY: 09/30/2021 FINDINGS: Multiple small calcification projecting over bilateral renal silhouettes are present. Additional calcification more centrally could reflect of the renal pelvis or perhaps within the ureter. A more focal, approximately 5 to 6 mm calcification projecting between the 2nd and 3rd transverse processes, stable. Overlying bowel gas pattern has nonobstructive appearance. IMPRESSION: 1. Bilateral nephrolithiasis. This includes more prominent 5-6 mm calcification projecting between the right L2 and L3 transverse processes appearing generally stable. Dictated by: Dictated on workstation # [id number]
[2021-10-01] MEDS ORDERED: ATOR20TA66 PO (07:40)
[2021-10-01] MEDS ORDERED: ETD300C PO (07:40)
[2021-10-01] MEDS: LACTATED RINGERS 1,000 ML IV PRN ×2 (07:44→10:19)
[2021-10-01] MEDS ORDERED: FUROSEMIDE 40 MG/4 ML INJ (LASIX) ONE (09:21)
[2021-10-01] MEDS ORDERED: MIDAZOLAM 2 MG/2 ML (VERSED) VIAL ONE (09:21)
[2021-10-01] MEDS ORDERED: KETOROLAC 30 MG/ML VIAL ONE (09:21)
[2021-10-01] MEDS ORDERED: proPOfol 200 MG/20 ML (DIPRIVAN) VIAL IV ONE (09:21)
[2021-10-01] MEDS ORDERED: SEVOFLURANE (ULTANE) 15 ML INHAL SOLN ONE (09:21)
[2021-10-01] MEDS ORDERED: LIDOCAINE PF 2% 5 ML (XYLOCAINE) VIAL ONE (09:21)
[2021-10-01] MEDS ORDERED: fentaNYL INJ 100 MCG/2 ML AMP ONE (09:21)
[2021-10-01] MEDS ORDERED: ONDANSETRON 4 MG/2 ML (SDV) Z0FRAN ONE (09:21)
--- NOTE | 2021-10-01 09:46 | Progress Note-Post Operative ---
Post-Operative Progess Note Surgeon (s)/Bending Shed Worker (s) Surgeon MAURICE STAPLES MD Bending Shed Worker: NONE Pre-Operative Diagnosis RIGHT PROXIMAL URETERAL STONE Post-Operative Diagnosis SAME Procedure & Operative Findings Date of Procedure 10/01/21 Procedure Performed/Findings RT ESWL Anesthesia Type GENERAL Estimated Blood Loss Estimated blood loss (mL): NONE Specimens/Packing Specimens Removed NONE Packing: NONE MAURICE STAPLES MD Oct 01, 2021 09:46
--- NOTE | 2021-10-01 09:48 | Discharge Inst-Urology ---
Discharge Inst-Urology Reconcile Patient Problems Problems Reviewed?: Yes Final Diagnosis RT PROXIMAL URETERAL STONE Patient Instructions/Follow Up Plan/Assessment/Instructions Please make appointment to been seen in office in 2 weeks. KUB prior to it KUB on way home Post ESWL instructions Increase oral fluids for 48 hours and then as needed. Diet and Activity as tolerated. If questions or concerns contact your physician Or seek help at emergency department. MAURICE STAPLES MD Oct 01, 2021 09:48
--- NOTE | 2021-10-01 10:09 | Anesthesia-General Post-Op ---
General Patient Condition Mental Status/LOC: Same as Preop Cardiovascular: Satisfactory Nausea/Vomiting: Absent Respiratory: Satisfactory Pain: Controlled Complications: Absent Post Op Complications Complications None Follow Up Care/Instructions Patient Instructions None needed. Anesthesia/Patient Condition Patient Condition Patient is doing well, no complaints, stable vital signs, no apparent adverse anesthesia problems. No complications reported per nursing. JERRY SUAZO CRNA Oct 01, 2021 10:09
[2021-10-01] MEDS ORDERED: HYDROmorphone 2 MG/ML VIAL (DILAUDID) IV ONE (10:15)
[2021-10-01] MEDS ORDERED: MEPERIDINE (DEMEROL) INJ 50 MG/ML IVP ONE (10:15)
[2021-10-01] MEDS ORDERED: ONDANSETRON 4 MG/2 ML (SDV) Z0FRAN IVP PRN (10:15)
[2021-10-01] MEDS ORDERED: fentaNYL INJ 100 MCG/2 ML AMP IVP ONE (10:15)
[2021-10-01] MEDS ORDERED: morphine INJ 10 MG/ML 1ML (SYR OR VIAL) IVP ONE (10:15)
[2021-10-01] MEDS ORDERED: NITR-65 PO (11:14)
[2021-10-01] MEDS ORDERED: KETO10TA PO (11:14)
--- NOTE | 2021-10-01 11:46 | Diagnostic Imaging Report ---
HISTORY: Post lithotripsy. TECHNIQUE: Supine frontal view of the abdomen. COMPARISON: None. FINDINGS: Multiple small calcifications are seen projecting over the kidneys bilaterally. The calcification previously seen at the proximal right ureter between the transverse processes of L2 and L3 is no longer evident. No distended loops of bowel are seen. There is no large collection of free air. No acute osseous abnormality is seen. IMPRESSION: 1. Calcification previously seen at the proximal right ureter is no longer evident. Additional calculi in the bilateral kidneys appear stable. Dictated by: Dictated on workstation # [id number]
--- NOTE | 2021-10-01 14:47 | OPERATIVE REPORT ---
DATE OF SERVICE: 10/01/2021 PREOPERATIVE DIAGNOSIS: Right proximal ureteral stone. POSTOPERATIVE DIAGNOSIS: Right proximal ureteral stone. OPERATION PERFORMED: Right ESWL. SURGEON: Carlos Staples MD ANESTHESIA: General. COMPLICATIONS: None. DESCRIPTION OF PROCEDURE: Under satisfactory general anesthesia, the patient in supine position on the ESWL table. The right proximal ureteral stone was localized. Shocks were delivered at kV of 6, a total of 1500 shocks completely fragmented the stone that was not visualized anymore. The patient received 40 mg of Lasix and 30 mg of Toradol IV at the end of the procedure. He tolerated the procedure and anesthesia well, and was sent to recovery room in stable condition. Job ID: [id number] DocumentID: [id number] Dictated Date: 10/01/2021 10:00:16 Range Technician Date: 10/01/2021 14:46:36 Dictated By: CARLOS STAPLES MD
== END 2021-10-01 11:45 | disposition home or self-care (01) ==
LOC: SDC 06:45
PROVIDERS: ATTEND Urology
DX: N20.1 Calculus of ureter (principal); N40.0 Benign prostatic hyperplasia without lower urinary tract symptoms; E11.9 Type 2 diabetes mellitus without complications; I25.10 Atherosclerotic heart disease of native coronary artery without angina pectoris; I25.2 Old myocardial infarction; I10 Essential (primary) hypertension; Z79.84 Long term (current) use of oral hypoglycemic drugs; Z79.899 Other long term (current) drug therapy; Z88.5 Allergy status to narcotic agent; Z11.2 Encounter for screening for other bacterial diseases
CPT/HCPCS: 74018; 82947; 87081

== ENCOUNTER → 2022-02-03 | Outpatient (CLI) | payer OTHER ==
[~2022-02-03] MED LIST changes: +ATOR20TA66 PO; +KETO10TA PO
--- NOTE | 2022-02-03 18:32 | Diagnostic Imaging Report ---
ABDOMEN/KUB 1VIEW INDICATION: Right renal stone COMPARISON: 10/01/2021 FINDINGS: There is a 5 mm mineralized density adjacent to lower pole of the right renal fossa. Additional smaller bilateral renal stones are stable. Nonobstructive bowel gas pattern. IMPRESSION: A 5 mm stone is now noted adjacent to lower pole of the right kidney and could be within the proximal right ureter. Dictated by: Dictated on workstation # [id number]
== END ==
LOC: RAD 14:29
PROVIDERS: ATTEND Urology
DX: N20.1 Calculus of ureter (principal)
CPT/HCPCS: 74018

== ENCOUNTER 2022-03-09 11:05 | Outpatient (RCR) | payer OTHER ==
[2022-03-05 15:57] LABS: POTASSIUM 4.1 MMOL/L (3.6-5.0)
[2022-03-05 15:59] LABS: CALCIUM 9.1 MG/DL (8.5-10.1)
[2022-03-05 16:03] LABS: CREATININE SERUM 1.6 MG/DL (0.60-1.30); PHOSPHORUS 3.8 MG/DL (2.3-4.7)
[2022-03-05 16:06] LABS: URIC ACID 4.9 MG/DL (2.6-7.2)
== END 2022-03-15 ==
LOC: LAB 11:05
PROVIDERS: ATTEND Urology
DX: N20.0 Calculus of kidney (principal)
CPT/HCPCS: 36415; 80048; 82140; 82340; 82507; 82570; 83735; 83945; 83970; 83986; 84100; 84105; 84133; 84300; 84392; 84550; 84560; 88300

== ENCOUNTER → 2023-10-20 | Outpatient (CLI) | payer OTHER ==
[~2023-10-20] MED LIST changes: -ETAN50CA SQ; +ETAN50CA3 SQ
--- NOTE | 2023-10-20 17:10 | Diagnostic Imaging Report ---
PROCEDURE: US Thyroid. TECHNIQUE: Multiple real-time grayscale images were obtained of the thyroid in various projections. INDICATION: Thyroid nodules. COMPARISON: No priors. FINDINGS: Right thyroid lobe is 5.2 x 1.7 x 1.9 cm. There is a right lobe cyst measuring 4 mm with small amount of intracystic debris or internal calcifications. No suspicious right lobe mass. The left lobe is 5.8 x 1.8 x 2.3 cm. It contains a mixed solid and cystic mass in the upper pole of 1.5 cm long axis. It has a subcentimeter cyst in the lower pole as well as an additional subcentimeter mixed solid and cystic lower pole lesion. There is a right paramedian ovoid hypoechoic isthmic lesion with central cystic degeneration measuring 1.1 cm long axis. IMPRESSION: Largely TI-RADS 3 lesions bilaterally. Given the size of the left lobe lesion, consider follow-up in one year's time. No lesion warranting biopsy at this point. Dictated by: Dictated on workstation # [id number]
== END ==
LOC: RAD 14:57
PROVIDERS: ATTEND Family Medicine
DX: Z01.89 Encounter for other specified special examinations (principal); E04.2 Nontoxic multinodular goiter
CPT/HCPCS: 76536